=== PATIENT | male | born 1945 | race Caucasian/White ===

== ENCOUNTER 2020-12-19 19:59 | Inpatient (IN) | payer OTHER ==
[~2020-12-19] VITALS: Ht 160 cm; Wt 87.5 kg
[2020-12-19 20:25] VITALS: BP 173/74
[2020-12-19 22:46] LABS: HEMATOCRIT 45.8 % (42.0-52.0); HEMOGLOBIN 14.9 gm/dL (14.0-18.0); MCH 26.2 pg (26.0-34.0); MCHC 32.6 g/dL (28.0-37.0); MCV 80.4 fL (80.0-100.0); RBC 5.7 mil/uL (4.50-6.00); RDW 15.5 % (10.5-14.5); WBC 10.8 thou/uL (4.0-11.0)
[2020-12-19 22:55] LABS: CREATININE 1.2 mg/dL (0.7-1.3); POTASSIUM 4.8 mmol/L (3.5-5.1)
[2020-12-20] MEDS ORDERED: VALSARTAN160 MG PO (03:21)
[2020-12-20] MEDS ORDERED: ATORVASTATIN CA80 MG (03:23)
[2020-12-20] MEDS ORDERED: SPIRONOLACTONE25 MG (03:26)
[2020-12-20 04:42] LABS: CHOLESTEROL 149 mg/dL (<200); HDL CHOLESTEROL 45 mg/dL (>40); LDL CHOLESTEROL 85 mg/dL (<100); TC:HDL 3.3 Ratio (Not establshd); TRIGLYCERIDE 95 mg/dL (<150); VLDL 19 mg/dL (<40)
[2020-12-20 04:43] LABS: SERUM ASSESSMENT Clear
[2020-12-20 05:24] VITALS: BP 121/62
--- NOTE | 2020-12-20 05:25 | NUR ---
PT ARRIVED ON UNIT VIA EMS FROM [facility] AT 2014. HAD COMPLAINTS OF DIZZINESS WHILE DRIVING A UTV. CHIEF COMPLAINT OF MOTION/EQUILIBRIUM DISTURBANCE. DENIES PAIN. VOIDING PER BATHROOM. RESTING COMFORTABLY. NO NEEDS VOICED. CALL LIGHT WITHIN REACH. FREQUENT OBSERVATION.
--- NOTE | 2020-12-20 08:20 | EKG ---
[address] [place] [address] ELECTROCARDIOGRAM REPORT Name: BERNADINE LAINEZ Room #: 213- ADM IN M.R.#: [id number] Admission: 12/19/20 Attend Phys: Anneliese Gallo MD Discharge: Date of : 45 Report #: [id number] 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 : 1945 Requested By: Lona Acevedo Order Number: [id number] MD: Jasen Best Measurements Intervals [place] Rate: 54 P: 26 SC: 176 QRS: 73 QRSD: 162 T: 40 QT: 487 QTc: 462 Interpretive Statements Sinus bradycardia Right bundle branch block Possible inferior infarct, old Compared to ECG 08/11/2000 07:19:38 ST segment elevation no longer present Electronically Signed On 12-20-2020 8:20:39 CDT by Jasen Best [email or web address] <ELECTRONICALLY SIGNED> By: Jasen Best MD, [facility] 12/20/2020 1 1 Jasen Best MD, [facility] /EPI
[2020-12-20 08:40] VITALS: BP 128/53
[2020-12-20 08:40] LABS: HEMATOCRIT 42.4 % (42.0-52.0); HEMOGLOBIN 13.7 gm/dL (14.0-18.0); MCHC 32.3 g/dL (28.0-37.0); MCV 80.4 fL (80.0-100.0); RBC 5.27 mil/uL (4.50-6.00); RDW 15.6 % (10.5-14.5); WBC 9.1 thou/uL (4.0-11.0)
[2020-12-20 08:52] LABS: CALCIUM 8.4 mg/dL (8.5-10.1); MAGNESIUM 2.2 mg/dL (1.8-2.4)
--- NOTE | 2020-12-20 10:21 | 2DMMODE ---
[facility] [place] [address] 2 D/M-MODE ECHOCARDIOGRAM Name: BERNADINE LAINEZ Room #: 213-P ADM IN M.R.#: [id number] Admission: 12/19/20 Attend Phys: Víctor Gomes MD Discharge: Date of : 45 Report #: [id number] THIS REPORT FOR: cc: FAM - Family physician unknown FAM - Family physician unknown Mu Newman MD [facility] ~ APPROVED REPORT Study performed: 12/20/2020 08:49:07 EXAM: Comprehensive 2D, Doppler, and color-flow Echocardiogram Patient Location: Bedside Room #: 213 Status: routine BSA: 1.90 HR: 50 bpm BP: 121/62 mmHg Rhythm: NSR Other Information Study Quality: Adequate Indications NSTEMI. Hx: CABG, stent, TAVR. 2D Dimensions RVDd: 39.47 mm IVSd: 13.21 (7-11mm) LVDd: 55.23 mm PWd: 12.87 (7-11mm) Ascending Ao: 34.79 (22-36mm) LVDs: 40.86 (25-40mm) Left Atrium: 43.40 (27-40mm) Aortic Root: 36.16 mm Volumes Left Atrial Volume (Systole) Single Plane 4CH: 64.69 mL Single Plane 2CH: 61.84 mL LA ESV Index: 36.00 mL/m2 Aortic Valve AoV Peak Amish.: 5.58 m/s AO Peak Gr.: 124.65 mmHg LVOT Max P.63 mmHg AO Mean Gr.: 72.59 mmHg [facility] [address] [place] [address] 2 D/M-MODE ECHOCARDIOGRAM Name: BERNADINE LAINEZ Room #: 213-P [facility] IN [facility]#: [id number] Admission: 12/19/20 Attend Phys: Víctor Gomes, Discharge: Date of : 45 Report #: [id number] AO V2 Mean: 3.98 m/s LVOT Max V: 0.95 m/s AO V2 VTI: 148.55 cm Mitral Valve E/A Ratio: 0.8 MV Decel. Time: 392.94 ms MV E Max Amish.: 0.86 m/s MV A Amish.: 1.05 m/s MV PHT: 113.95 ms IVRT: 96.89 ms Pulmonary Valve PV Peak Amish.: 1.08 m/s PV Peak Gr.: 4.69 mmHg Pulmonary Vein P Vein S: 0.70 m/s P Vein A: 0.26 m/s P Vein D: 0.36 m/s P Vein A Dur.: 143.0 msec P Vein S/D Ratio: 1.94 Tricuspid Valve TR Peak Amish.: 2.60 m/s RAP Estimate: 5.00 mmHg TR Peak Gr.: 26.00 mmHg PA Pressure: 31.00 mmHg Left Ventricle The left ventricle is normal size. Mild concentric left ventricular hypertrophy. Left ventricular systolic function is normal. LVEF is 60%. Mild diastolic dysfunction is present (impaired relaxation pattern). Right Ventricle The right ventricle is normal size. The right ventricular systolic function is normal. Atria Left atrium is mildly dilated. The right atrium size is normal. Aortic Valve History of TAVR (2019). Bioprosthetic valve (size unknown). Peak pressure gradient of 125mmHg; mean of 73mmHg. Gadients suggest severe stenosis of the valve. Mild aortic regurgitation. Mitral Valve The mitral valve is normal in structure. Mild mitral annular calcification. Mild mitral regurgitation. No evidence of mitral valve [address] [address] 2 D/M-MODE ECHOCARDIOGRAM Name: BERNADINE LAINEZ Room #: 213-[facility] IN ..#: [id number] Admission: 12/19/20 Attend Phys: Víctor Gomes, Discharge: Date of : 45 Report #: [id number] stenosis. Tricuspid Valve The tricuspid valve is normal in structure. Trace tricuspid regurgitation. Estimated PAP is 31mmHg. Pulmonic Valve The pulmonary valve is normal in structure. Trace pulmonic regurgitation. Great Vessels The aortic root is normal in size. The ascending aorta is normal in size. IVC is normal in size and collapses >50% with inspiration. Pericardium There is no pericardial effusion. <Conclusion> Normal left ventricular size with mild concentric hypertrophy Ejection fraction 60% Grade 1 diastolic dysfunction Normal right ventricle size/function Left atrium mildly dilated Aortic valve not well seen History of TAVR Mild aortic valve insufficiency Mean gradient across the aortic valve 73mmHg compatible severe aortic valve stenosis Mild mitral valve insufficiency Trace tricuspid valve insufficiency Pulmonary systolic pressure estimated 31 mmHg No pericardial effusion Normal aortic root size <ELECTRONICALLY SIGNED> By: Mu Newman MD, FACC 12/20/20 1021 1021 1021 Mu Newman MD, FACC /INF
[2020-12-20 12:20] VITALS: BP 142/74
--- NOTE | 2020-12-20 14:01 | NUR ---
PT OFF UNIT TO [facility]UC MED.
[2020-12-20] MEDS ORDERED: TYLENOL325 MG PO (15:28)
[2020-12-20] MEDS ORDERED: BAYER CHEWABLE81 MG PO (15:28)
[2020-12-20 15:52] VITALS: BP 142/74
[2020-12-20 16:22] VITALS: BP 142/74
[2020-12-21 01:06] LABS: GLYCOHEMOGLOBIN (HGB A1C) 5.8 % (4.8-5.6)
== END 2020-12-20 18:31 | disposition home or self-care (01) | DRG 281 ==
LOC: CATH 19:59 → 2N 20:00
PROVIDERS: Nurse Practitioner Family; ADMIT Internal Medicine; ATTEND Internal Medicine
DX: I21.4 Non-ST elevation (NSTEMI) myocardial infarction (principal); N17.9 Acute kidney failure, unspecified; I10 Essential (primary) hypertension; E78.5 Hyperlipidemia, unspecified; I25.10 Atherosclerotic heart disease of native coronary artery without angina pectoris; E78.00 Pure hypercholesterolemia, unspecified; D69.6 Thrombocytopenia, unspecified; Z60.2 Problems related to living alone; R53.81 Other malaise; I45.10 Unspecified right bundle-branch block; E16.2 Hypoglycemia, unspecified; Z95.1 Presence of aortocoronary bypass graft; Z95.2 Presence of prosthetic heart valve; Z79.82 Long term (current) use of aspirin; Z79.899 Other long term (current) drug therapy; Z87.891 Personal history of nicotine dependence
CPT/HCPCS: 10081